=== PATIENT | female | born 1940 | race Caucasian/White ===

== ENCOUNTER 2020-05-23 22:45 | Inpatient (IN) | payer MEDICARE, SELFPAY ==
[~2020-05-23] VITALS: Ht 154.9 cm; Wt 59.0 kg
[2020-05-23] MEDS ORDERED: SYNTHROID25 MCG PO (23:43)
[2020-05-23] MEDS ORDERED: SIMVASTATIN20 MG PO (23:45)
[2020-05-23] MEDS ORDERED: SORINE120 MG PO (23:48)
[2020-05-23] MEDS ORDERED: ELIQUIS5 M1 PO (23:49)
[2020-05-24 06:45] LABS: BASO % 0.5 % (0.0-1.0); EOS # 0.2 10*3/uL (0.0-0.4); EOS % 2.6 % (1.0-4.0); HEMATOCRIT 43.2 % (37.0-47.0); LYMPH # 2.7 10*3/uL (1.3-4.4); LYMPH % 36.4 % (27.0-41.0); MEAN CELL VOLUME 97.5 fl (81.0-99.0); MEAN CORPUSCULAR HGB 31.4 pg (27.0-31.0); MEAN CORPUSCULAR HGB CONC 32.2 g/dl (33.0-37.0); MEAN PLATELET VOLUME 11.5 fl (9.6-12.3); MONO # 0.8 10*3/uL (0.1-1.0); MONO % 10.4 % (3.0-9.0); NEUT # 3.7 10*3/uL (2.3-7.9); NEUT % 49.8 % (47.0-73.0); PLATELET COUNT AUTOMATED 187 10*3/uL (130-400); RED BLOOD COUNT 4.43 10*6/uL (4.10-5.10); RED CELL DISTRI WIDTH 13.2 % (0-14.5); WHITE BLOOD COUNT 7.4 10*3/uL (4.8-10.8)
[2020-05-24 07:26] LABS: POTASSIUM 3.7 mmol/L (3.5-5.1)
[2020-05-24 07:47] VITALS: BP 124/76
[2020-05-24 07:49] LABS: CREATININE 1.11 mg/dL (0.55-1.02); THYROID STIM HORMONE (HS) 2.06 uIU/ml (0.358-4.75); TOTAL PROTEIN 6.2 gm/dL (6.4-8.2)
[2020-05-24 08:02] LABS: VITAMIN D, 25-HYDROXY 14.3 ng/mL (30-100)
[2020-05-24 20:00] VITALS: BP 100/69
[2020-05-25 08:00] VITALS: BP 133/87
[2020-05-25] MEDS ORDERED: PANTOPRAZOLE SO40 MG PO (14:06)
[2020-05-25 20:00] VITALS: BP 133/70
[2020-05-26 07:38] VITALS: BP 111/65
[2020-05-26 19:16] VITALS: BP 144/84
[2020-05-27 07:45] VITALS: BP 124/83
[2020-05-27 19:35] VITALS: BP 119/68
[2020-05-28 06:18] LABS: BASO % 0.3 % (0.0-1.0); EOS # 0.1 10*3/uL (0.0-0.4); EOS % 1.2 % (1.0-4.0); LYMPH # 2.9 10*3/uL (1.3-4.4); MEAN CELL VOLUME 95.9 fl (81.0-99.0); MEAN CORPUSCULAR HGB 31.4 pg (27.0-31.0); MEAN CORPUSCULAR HGB CONC 32.7 g/dl (33.0-37.0); MEAN PLATELET VOLUME 11.2 fl (9.6-12.3); MONO # 0.9 10*3/uL (0.1-1.0); MONO % 9.5 % (3.0-9.0); NEUT # 5.4 10*3/uL (2.3-7.9); NEUT % 57.8 % (47.0-73.0); PLATELET COUNT AUTOMATED 241 10*3/uL (130-400); RED BLOOD COUNT 4.59 10*6/uL (4.10-5.10); RED CELL DISTRI WIDTH 13.1 % (0-14.5); WHITE BLOOD COUNT 9.3 10*3/uL (4.8-10.8)
[2020-05-28 06:31] LABS: CREATININE 1.14 mg/dL (0.55-1.02); POTASSIUM 3.3 mmol/L (3.5-5.1)
[2020-05-28 08:00] VITALS: BP 115/85
[2020-05-28 11:52] LABS: BILIRUBIN Negative (Negative); BLOOD Trace-Intact (Negative); CLARITY Cloudy (Clear); COLOR Dark Yellow (Yellow); GLUCOSE Negative (Negative); KETONE Trace (Negative); LEUKO ESTERASE Negative (Negative); NITRITE Negative (Negative); PH 5.5 (4.5-8.0); SPECIFIC GRAVITY >= 1.030 (1.001-1.030)
[2020-05-28 12:02] LABS: BACTERIA 2+; EPITHELIAL CELLS 21-30; MUCOUS 3+; YEAST 1+
[2020-05-28 19:30] VITALS: BP 118/82
[2020-05-29 07:49] VITALS: BP 114/71
[2020-05-29 19:03] VITALS: BP 139/82
[2020-05-30 07:23] VITALS: BP 118/70
[2020-05-30 18:49] LABS: BILIRUBIN Negative (Negative); BLOOD 1+ (Negative); CLARITY Cloudy (Clear); COLOR Yellow (Yellow); GLUCOSE Negative (Negative); KETONE Trace (Negative); LEUKO ESTERASE Trace (Negative); NITRITE Negative (Negative); SPECIFIC GRAVITY 1.025 (1.001-1.030)
[2020-05-30 18:58] LABS: BACTERIA 1+; EPITHELIAL CELLS 31-40; RBC 0-2 rbc/hpf (0-2)
[2020-05-30 19:53] VITALS: BP 145/74
[2020-05-31 07:57] VITALS: BP 139/70
[2020-05-31 19:52] VITALS: BP 135/69
[2020-06-01 07:37] VITALS: BP 102/60; BP 99/62
[2020-06-01 19:45] VITALS: BP 105/66
[2020-06-02 08:10] VITALS: BP 112/60
[2020-06-02 10:38] VITALS: BP 122/70
[2020-06-02 17:55] VITALS: BP 124/78
[2020-06-03 07:42] VITALS: BP 134/66
[2020-06-03 19:51] VITALS: BP 123/59
[2020-06-04 07:22] VITALS: BP 109/65
[2020-06-04 08:02] VITALS: BP 120/68
[2020-06-04] MEDS ORDERED: MIRTAZAPINE15 M1 PO (09:07)
[2020-06-04] MEDS ORDERED: OLANZAPINE ODT5 MG BC (09:07)
[2020-06-04] MEDS ORDERED: MEMANTINE HCL10 MG PO (09:07)
[2020-06-04] MEDS ORDERED: B121000 MCG/1 IM (09:07)
[2020-06-04] MEDS ORDERED: VITAMIN D3125 MC1 PO (09:07)
[2020-06-04] MEDS ORDERED: RIVASTIGMINE1 EAC2 T (09:07)
[2020-06-04 20:00] VITALS: BP 150/72
[2020-06-05 07:20] VITALS: BP 117/55
[2020-06-05] MEDS ORDERED: ACETAMINOPHEN325 M2 PO (08:47)
[2020-06-05] MEDS ORDERED: Synthroid,Levo25 MCG PO (08:47)
[2020-06-05] MEDS ORDERED: SIMVASTATIN20 MG PO (08:47)
[2020-06-05] MEDS ORDERED: SOTALOL HCL80 MG PO (08:47)
[2020-06-05] MEDS ORDERED: PANTOPRAZOLE SO40 MG PO (08:47)
[2020-06-05] MEDS ORDERED: ELIQUIS5 M1 PO (08:47)
[2020-06-05] MEDS ORDERED: ATARAX,VISTARIL10 MG PO (09:15)
== END 2020-06-05 12:22 | disposition home or self-care (01) | DRG 885 ==
LOC: 3N 22:45
PROVIDERS: Counselor Professional; Internal Medicine; Registered Nurse; ADMIT Psychiatry & Neurology Psychiatry; ATTEND Psychiatry & Neurology Psychiatry
DX: F33.3 Major depressive disorder, recurrent, severe with psychotic symptoms (principal); N17.0 Acute kidney failure with tubular necrosis; E44.0 Moderate protein-calorie malnutrition; G30.9 Alzheimer's disease, unspecified; I48.91 Unspecified atrial fibrillation; Z20.828 Contact with and (suspected) exposure to other viral communicable diseases; F41.9 Anxiety disorder, unspecified; E78.5 Hyperlipidemia, unspecified; E03.9 Hypothyroidism, unspecified; F02.80 Dementia in other diseases classified elsewhere, unspecified severity, without behavioral disturbance, psychotic disturbance, mood disturbance, and anxiety; E53.8 Deficiency of other specified B group vitamins; Z68.24 Body mass index [BMI] 24.0-24.9, adult; Z85.42 Personal history of malignant neoplasm of other parts of uterus; Z90.710 Acquired absence of both cervix and uterus